=== PATIENT | male | born 1995 | race Caucasian/White ===

== ENCOUNTER 2017-02-21 17:43 | Emergency (ER) | payer BC, OTHER ==
[~2017-02-21] VITALS: Ht 175.3 cm; Wt 85.2 kg
[2017-02-21 17:48] VITALS: TEMP 36.6; Ht 175.3 cm; Wt 85.2 kg
--- NOTE | 2017-02-21 19:03 | EMERGENCY ROOM VISIT NOTE ---
ED Visit Note First contact with patient: 17:52 CHIEF COMPLAINT: Head injury on Monday, headache, tinnitus, photosensitivity HISTORY OF PRESENT ILLNESS: This 21-year-old male patient presented to the emergency department with a female friend, 4 days after receiving a head injury when he was sliding down the railing of a set of steps, fell off, and hit his head. The injury occurred on Monday. There was no loss of consciousness. There has been no vomiting. The patient complains of ongoing headache, tinnitus , photosensitivity, fatigue, and "feeling foggy" since the injury. He was seen at urgent care prior to his arrival here in the emergency department, when he was encouraged to come here for further evaluation due to the mild concussion. The patient denies nausea, vomiting, loss of consciousness, confusion, dizziness , changes in vision, or other symptoms. The headache has been constant. The patient complains of no neck pain. The patient has taken nothing for the pain. The patient rates the pain as 5/10 and achy. The patient denies bowel or bladder dysfunction. The patient denies any other injuries. REVIEW OF SYSTEMS: A 10 system review of systems was performed with positives and pertinent negatives listed in the history of present illness. All other systems were reviewed and are negative. ALLERGIES: None MEDICATIONS: None PMH: None SOCIAL HISTORY: The patient is a [employer] student. He lives locally with his roommates. He denies drug, alcohol, tobacco use. PHYSICAL EXAM: Vital Signs: Reviewed Nurse's notes, vital signs stable. GENERAL : This is a 21-year-old white male, in no acute distress, well-developed, well- nourished. NEURO: The patient is alert, oriented to person place and time, and coherent. Normal mini mental status exam. Negative Romberg and pronator drift. Cerebellar function intact. HEAD: Normocephalic, atraumatic. The patient states there was a hematoma on the left side of his head, however this has improved since the initial injury. EYES: Pupils are equal round and reactive to light and accommodation. EOMs are full and optic discs and fundi are normal. There is no swelling or discoloration of the tissue surrounding the eyes. EARS: External auditory canals clear without blood. NOSE: Patent without tenderness. No septal hematoma. FACE: No facial bone tenderness. NECK: Supple. There is no cervical spine tenderness. The patient does not have tenderness with movement of the neck. ED COURSE: I examined the patient. The patient, his friend, and I had a discussion at bedside regarding options for CT scan versus no CT scan. I discussed benefits versus risks, and utilizing shared decision-making, decided against imaging. Due to the patient's symptoms, and lack of vomiting, loss of consciousness, syncope, or other signs of intracranial hemorrhage, I do feel that this is reasonable at this time. The symptoms the patient is experiencing now do seem to be consistent with a mild to moderate concussion. Encourage the patient to follow up with the concussion clinic outpatient and to follow-up with [facility] in 3-4 days for recheck. The patient was discharged home in good condition ambulatory. I attest that I have personally reviewed the patient's current medication list. Patient was found to have normal blood pressure on screening and does not require follow-up. DIFFERENTIAL DIAGNOSIS: Closed head injury, concussion, intracranial hemorrhage , headache, migraine, malignancy, skull fracture, facial fracture, and others DIAGNOSIS: Concussion Current/Historical Medications No Active Prescriptions or Reported Meds Allergies Uncoded Allergies: SEASONAL (Allergy, Mild, Watery eyes, 02/21/17) Vital Signs Date Time Temp Pulse Resp B/P (MAP) Pulse Ox O2 Delivery O2 Flow Rate FiO2 02/21/17 19:19 73 18 138/76 97 02/21/17 17:50 16 02/21/17 17:48 36.6 86 16 125/76 98 Room Air Departure Information Impression Primary Impression: Concussion Dispostion Home / Self-Care Condition GOOD Prescriptions No Active Prescriptions or Reported Meds Referrals [facility] (PCP) Patient Instructions ED Concussion, My [facility] Additional Instructions You have been treated in the Emergency Department for a Closed Head Injury/ concussion. We did have a lengthy discussion in the emergency department regarding options for CT scan versus no CT scan. At this time, I do not feel that your symptoms are concerning for an intracranial hemorrhage, and as discussed, CT scan will not show a "concussion". With that said, if you exhibit any concerning symptoms , please return immediately to the ED for imaging of your head. For pain control, you can use the following [id number] medicines (if >12 yo): Ibuprofen(Motrin, Advil) may be used for fever or pain. Use 600mg every six hours as needed. Take with food. Avoid using more than 2400mg in a 24 hour period. Do not use 2400mg per day for more than three consecutive days without physician direction. Prolonged inappropriate use can lead to stomach upset or ulcers. (AND/OR) Acetaminophen(Tylenol) may be used for fever or pain. Use 1000mg every six hours as needed. Avoid using more than 3000mg in a 24 hour period. You should relax in a quiet, dark place for the rest of the day. Avoid any possible triggers including: cigarette smoke, caffeine, nicotine, chocolate, wine, beer, loud noises or music, or bright lights. You should schedule a follow-up appointment in 2-3 days with your Primary Care Provider or established Neurologist for further evaluation and treatment of your Headache. As discussed, I recommend avoiding any alcohol or activity which may further injure your head until you are symptom-free for 1 week. Return to the Emergency Department if your current symptoms worsen despite treatment course outlined above, or if you develop any of the following symptoms : intractable pain despite aforementioned treatment course, visual disturbances , loss of vision, unilateral weakness or facial drooping, slurring of speech, loss of coordination, or loss of consciousness. Problem Qualifiers Primary Impression: Concussion Encounter type: initial encounter Loss of consciousness presence/duration: without LOC Qualified Codes: S06.0X0A - Concussion without loss of consciousness, initial encounter
[2017-02-21 19:19] VITALS: BP 138/76; PULSE 73; O2SAT 97
== END 2017-02-21 19:19 | disposition home or self-care (01) ==
LOC: C.EDB 17:45 → C.EDD 19:19
DX: S06.0X9A Concussion with loss of consciousness of unspecified duration, initial encounter (principal); W18.09XA Striking against other object with subsequent fall, initial encounter